=== PATIENT | female | born 1960 | race Two or more races ===

== ENCOUNTER → 2016-11-05 | Outpatient (CLI) | payer OTHER ==
[~2016-11-05] MED LIST: CALC500T54 PO; CETI10CA PO; MULT-246 PO; OMEP40CA2 PO; SERT25TA PO; [UNRECOGNIZED DRUG - OTHER]; [UNRECOGNIZED DRUG - OTHER]; [UNRECOGNIZED DRUG - OTHER] PO
--- NOTE | 2016-11-05 09:17 | RAD ---
Indication chronic sinusitis. Axial images were obtained targeted to the paranasal sinuses. Images were reformatted in the coronal and sagittal planes. No previous imaging targeted to the paranasal sinuses is available. The visualized brain appears unremarkable. Mastoid air cells appear normally aerated. The frontal and ethmoid sinuses appear normal. The maxillary sinuses appear normal and the sphenoid sinus appears normal. Ostiomeatal complexes appear normal No calvarial abnormality is seen.. IMPRESSION: Normal paranasal sinuses. PQRS Compliance Statement: One or more of the following individualized dose reduction techniques were utilized for this examination: 1. Automated exposure control 2. Adjustment of the mA and/or kV according to patient size 3. Use of iterative reconstruction technique
== END | disposition home or self-care (01) ==
LOC: CT 07:50
PROVIDERS: ATTEND Nurse Practitioner Family
DX: Z00.01 Encounter for general adult medical examination with abnormal findings (principal); J32.9 Chronic sinusitis, unspecified; K21.9 Gastro-esophageal reflux disease without esophagitis; F41.9 Anxiety disorder, unspecified; E78.4 Other hyperlipidemia
CPT/HCPCS: 70486

== ENCOUNTER 2017-08-31 06:01 | Emergency (ER) | payer OTHER ==
[~2017-08-31] VITALS: Ht 165.1 cm; Wt 65.0 kg
--- NOTE | 2017-08-31 06:33 | PHYS DOC ---
Adult General Chief Complaint Chief Complaint: NAUSEA/VOMITING/DIARRHEA HPI HPI 56 showed female presents with one-day history of nausea and vomiting. The patient was here with a lump one who was admitted to the hospital last night. She began fill ill and went home. She has vomited 4 times. It is nonbloody, nonbilious. She does not have any diarrhea or fever. She has not taken anything to stop the vomiting. She is concerned for dehydration as she did not eat or drink very much yesterday. He denies exposure or any new or unusual foods. Review of Systems Review of Systems Constitutional: Denies fever or chills [] Eyes: Denies change in visual acuity, redness, or eye pain [] HENT: Denies nasal congestion or sore throat [] Respiratory: Denies cough or shortness of breath [] Cardiovascular: No additional information not addressed in HPI [] GI: No abdominal pain. Has vomiting. No diarrhea. [] : Denies dysuria or hematuria [] Musculoskeletal: Denies back pain or joint pain [] Integument: Denies rash or skin lesions [] Neurologic: Denies headache, focal weakness or sensory changes [] Endocrine: Denies polyuria or polydipsia [] All other systems were reviewed and found to be within normal limits, except as documented in this note. Current Medications Current Medications Current Medications Medications (Trade) Dose Ordered Sig/Evens Start Time Stop Time Status Last Admin Dose Admin Prochlorperazine Edisylate (Compazine) 10 mg 1X ONCE 08/31/17 06:30 08/31/17 06:31 UNV Sodium Chloride 1,000 ml @ 1,000 mls/hr 1X ONCE 08/31/17 06:30 08/31/17 07:29 UNV Allergies Allergies Allergies Coded Allergies Type Severity Reaction Last Updated Verified No Known Drug Allergies 06/30/13 No Physical Exam Physical Exam Constitutional: Well developed, well nourished, no acute distress, non-toxic appearance. [] HENT: Normocephalic, atraumatic, bilateral external ears normal, oropharynx moist, no oral exudates, nose normal. [] Eyes: PERRLA, EOMI, conjunctiva normal, no discharge. [] Neck: Normal range of motion, no tenderness, supple, no stridor. [] Cardiovascular:Heart rate regular rhythm, no murmur [] Lungs & Thorax: Bilateral breath sounds clear to auscultation [] Abdomen: Bowel sounds normal, soft, no tenderness, no masses, no pulsatile masses. [] Skin: Warm, dry, no erythema, no rash. [] Back: No tenderness, no CVA tenderness. [] Extremities: No tenderness, no cyanosis, no clubbing, ROM intact, no edema. [] Neurologic: Alert and oriented X 3, normal motor function, normal sensory function, no focal deficits noted. [] Psychologic: Affect normal, judgement normal, mood normal. [] EKG EKG [] Radiology/Procedures Radiology/Procedures [] Course & Med Decision Making Course & Med Decision Making Pertinent Labs and Imaging studies reviewed. (See chart for details) The patient's labs are unremarkable. After copiously of degenerative fluids, the patient was feeling better. She was able to tolerate fluids by mouth. I will discharge her with a prescription for Zofran ODT. [] Dragon Disclaimer Dragon Disclaimer This electronic medical record was generated, in whole or in part, using a voice recognition dictation system. Departure Departure: Referrals: CARMEN ALSTON MD (PCP) Scripts Ondansetron (ZOFRAN ODT) 4 Mg Tab.rapdis 1 TAB SL Q8HRS, #15 TAB Prov: DELANEY YANEZ DO 08/31/17 DELANEY YANEZ DO Aug 31, 2017 06:33
[2017-08-31 06:40] LABS: BASO % 0 % (0-3); EOS % 0 % (0-3); HEMATOCRIT 41.2 % (36.0-47.0); HEMOGLOBIN 14.2 g/dL (12.0-15.5); LYMPH % 12 % (24-48); MEAN CORPUSCULAR HEMOGLOBIN 32 pg (25-35); MEAN CORPUSCULAR HGB CONC 35 g/dL (31-37); MEAN CORPUSCULAR VOLUME 91 fL (79-100); MONO # 0.8 x10^3/uL (0.0-1.1); MONO % 10 % (0-9); NEUT # 6.3 x10^3uL (1.8-7.7); NEUT % 78 % (31-73); PLATELET COUNT 221 x10^3/uL (140-400); RED BLOOD COUNT 4.51 x10^6/uL (3.50-5.40); RED CELL DISTRIBUTION WIDTH 13.1 % (11.5-14.5); WHITE BLOOD COUNT 8.1 x10^3/uL (4.0-11.0)
[2017-08-31] MEDS ORDERED: PROCHLORPERAZINE 10 MG/2 ML VIAL. IV ONE (06:45)
[2017-08-31] MEDS ORDERED: IV NORMAL SALINE 1,000ML 1,000 ML IV ONE (06:45)
[2017-08-31 06:50] LABS: ALBUMIN 4.3 g/dL (3.4-5.0); ALBUMIN/GLOBULIN RATIO 1.3 (1.0-1.7); CALCIUM 9.3 mg/dL (8.5-10.1); CREATININE 0.7 mg/dL (0.6-1.0); GFR 86.6; POTASSIUM 3.7 mmol/L (3.5-5.1); TOTAL BILIRUBIN 0.6 mg/dL (0.2-1.0); TOTAL PROTEIN 7.7 g/dL (6.4-8.2)
[2017-08-31] MEDS ORDERED: ONDA4TAB10 SL (06:56)
[2017-08-31 07:30] VITALS: BP 109/64
== END 2017-08-31 07:30 | disposition home or self-care (01) ==
LOC: ER 06:01
DX: R11.2 Nausea with vomiting, unspecified (principal)
CPT/HCPCS: 36415; 80053; 83690; 85025; 96361; 96374; 99284; J0780; J7030

== ENCOUNTER → 2017-09-30 | Outpatient (CLI) | payer OTHER ==
[2017-08-31 07:30] VITALS: BP 109/64
[~2017-09-30] MED LIST changes: +ONDA4TAB10 SL
--- NOTE | 2017-09-30 16:20 | RAD ---
DATE: 09/30/2017 EXAM: DIGITAL SCREEN BILAT W/CAD HISTORY: Asymptomatic screening mammogram. COMPARISON: Prior mammograms from 11/06/2014 and 12/31/2011 This study was interpreted with the benefit of Computerized Aided Detection (CAD). The breast parenchyma is heterogeneously dense, which could reduce sensitivity of mammography. Breast parenchyma level C. FINDINGS: Bilateral CC and MLO views of the breasts were performed. Right breast: There are no suspicious microcalcifications, masses or areas of architectural distortion. Left breast: There are no suspicious microcalcifications, masses or areas of architectural distortion. Findings are stable from prior mammogram. IMPRESSION: Negative bilateral mammogram. BI-RADS CATEGORY: 1 NEGATIVE RECOMMENDED FOLLOW-UP: 12M 12 MONTH FOLLOW-UP PQRS compliance statement: Patient information was entered into a reminder system with a target due date 09/30/2018 for the next mammogram. Mammography is a sensitive method for finding small breast cancers, but it does not detect them all and is not a substitute for careful clinical examination. A negative mammogram does not negate a clinically suspicious finding and should not result in delay in biopsying a clinically suspicious abnormality. "Our facility is accredited by the [employer] Mammography Program."
== END | disposition home or self-care (01) ==
LOC: MAMMO 08:25
PROVIDERS: ATTEND Nurse Practitioner Family
DX: Z12.31 Encounter for screening mammogram for malignant neoplasm of breast (principal); J32.9 Chronic sinusitis, unspecified; E78.4 Other hyperlipidemia; K21.9 Gastro-esophageal reflux disease without esophagitis
CPT/HCPCS: 77067

== ENCOUNTER → 2020-10-22 | Outpatient (CLI) | payer OTHER ==
--- NOTE | 2020-10-22 16:31 | RAD ---
PROCEDURE: MG BILAT SCREEN+COSTA HISTORY: The patient is 59 years old and is seen for Reason: SCREENING / Spl. Instructions: / Histor y: . COMPARISON: September 30, 2017 TECHNIQUE: CC and MLO views of both breasts were obtained. Images were processed by the [employer] computer-aided detection system. DENSITY: The breast parenchyma is heterogeneously dense. This may lower the sensitivity of mammograph y. FINDINGS: No developing mass, suspicious calcifications or architectural distortion. IMPRESSION: Negative. No evidence of malignancy. Recommend annual screening mammograms per [employer] guidelines. She will be due in one year. BI-RADS category 1 Negative Patient entered into a reminder system for annual screening mammogram. Electronically signed by: Ricardo Tyler DO (10/22/2020 4:29 PM) [id number]
== END ==
LOC: MAMMO 15:15
PROVIDERS: ATTEND Family Medicine
DX: Z12.31 Encounter for screening mammogram for malignant neoplasm of breast (principal)
CPT/HCPCS: 77063; 77067